=== PATIENT | female | born 1950 | race Caucasian/White ===

== ENCOUNTER 2018-12-07 06:39 | Day surgery (SDC) | payer OTHER ==
[~2018-12-07] VITALS: Ht 157.5 cm; Wt 69.5 kg
[~2018-12-07 06:39] MED LIST: Altoprev40 MG PO; BUPR150T2 PO; ESTR2 PO; GABA300; LOSA25 PO; NITR100CA; Naproxen375 MG PO; OMEPRAZOLE20 MG PO; QVAR REDIHALE10.6 G1 INH; TIZA4 PO; TRAZ50; TRAZ50 PO; [UNRECOGNIZED DRUG - OTHER] PO
--- NOTE | 2018-12-07 08:54 | NUR ---
12/07/18 0854 Yaquelin Ingram 8CC OF SALINE INJECTED INTO POLYP TO AID IN REMOVAL--PT TOLERATED WELL
== END 2018-12-07 09:32 | disposition home or self-care (01) ==
LOC: ORSCSDS 06:39
DX: Z12.11 Encounter for screening for malignant neoplasm of colon (principal); R13.10 Dysphagia, unspecified; Z86.010 Personal history of colon polyps; D12.3 Benign neoplasm of transverse colon; D12.2 Benign neoplasm of ascending colon; K63.89 Other specified diseases of intestine; K57.30 Diverticulosis of large intestine without perforation or abscess without bleeding; K64.8 Other hemorrhoids; K64.4 Residual hemorrhoidal skin tags; I10 Essential (primary) hypertension; Z79.899 Other long term (current) drug therapy
CPT/HCPCS: 88305; J0461; J2405; J2704; J7120

== ENCOUNTER → 2021-08-30 | Outpatient (CLI) | payer OTHER | END | disposition home or self-care (01) | LOC: LAB SHORT 18:50 → LAB FUT 08-30 12:45 | DX: K59.00 Constipation, unspecified (principal); R10.84 Generalized abdominal pain; R14.0 Abdominal distension (gaseous) | CPT/HCPCS: 87338 ==

== ENCOUNTER 2021-12-17 10:01 | Day surgery (SDC) | payer OTHER ==
[~2021-12-17] VITALS: Ht 154.9 cm; Wt 78.8 kg
== END 2021-12-17 13:38 | disposition home or self-care (01) ==
LOC: ORSCSDS 10:01
PROVIDERS: Internal Medicine Gastroenterology
PROC: 0DBA8ZX Excision of Jejunum, Via Natural or Artificial Opening Endoscopic, Diagnostic (ICD-10-PCS; principal; 2021-12-17 11:15)
PROC: 0DB78ZX Excision of Stomach, Pylorus, Via Natural or Artificial Opening Endoscopic, Diagnostic (ICD-10-PCS; principal; 2021-12-17 11:15)
PROC: 0DBL8ZX Excision of Transverse Colon, Via Natural or Artificial Opening Endoscopic, Diagnostic (ICD-10-PCS; principal; 2021-12-17 11:15)
PROC: 0D757ZZ Dilation of Esophagus, Via Natural or Artificial Opening (ICD-10-PCS; principal; 2021-12-17 11:15)
PROC: 0DBE8ZX Excision of Large Intestine, Via Natural or Artificial Opening Endoscopic, Diagnostic (ICD-10-PCS; principal; 2021-12-17 11:15)
PROC: 0DBC8ZX Excision of Ileocecal Valve, Via Natural or Artificial Opening Endoscopic, Diagnostic (ICD-10-PCS; principal; 2021-12-17 11:15)
DX: R13.10 Dysphagia, unspecified (principal); Z86.010 Personal history of colon polyps; D12.0 Benign neoplasm of cecum; D12.3 Benign neoplasm of transverse colon; K52.9 Noninfective gastroenteritis and colitis, unspecified; R10.9 Unspecified abdominal pain; K44.9 Diaphragmatic hernia without obstruction or gangrene; K64.8 Other hemorrhoids; K64.4 Residual hemorrhoidal skin tags; K57.30 Diverticulosis of large intestine without perforation or abscess without bleeding; R14.0 Abdominal distension (gaseous); I10 Essential (primary) hypertension; E78.5 Hyperlipidemia, unspecified; Z79.899 Other long term (current) drug therapy; Z79.82 Long term (current) use of aspirin; F41.8 Other specified anxiety disorders
CPT/HCPCS: 88305; 88342; J2704; J7120

== ENCOUNTER → 2022-11-17 | Outpatient (CLI) | payer OTHER | END | disposition home or self-care (01) | LOC: LAB SHORT 11:20 → LAB 11:20 | DX: N39.0 Urinary tract infection, site not specified (principal) | CPT/HCPCS: 87086 ==

== ENCOUNTER → 2023-01-20 | Outpatient (CLI) | payer OTHER ==
[2023-01-21 12:14] LABS: Candida species (DNA Probe) Negative (NEGATIVE); G. vaginalis (DNA Probe) Negative (NEGATIVE); T. vaginalis (DNA Probe) Negative (NEGATIVE)
== END ==
LOC: LAB SHORT 13:37 → LAB 13:37
PROVIDERS: Obstetrics & Gynecology
DX: N95.2 Postmenopausal atrophic vaginitis (principal)
CPT/HCPCS: 87480; 87510; 87660

== ENCOUNTER 2023-07-08 11:57 | Emergency (ER) | payer OTHER ==
[~2023-07-08] VITALS: Ht 172.7 cm; Wt 72.6 kg
[2023-07-08 13:12] LABS: BASOPHILS ABSOLUTE AUTO 0.07 K/mm3 (0.00-0.23); BASOPHILS PERCENT AUTO 1 % (0-2); EOSINOPHILS ABSOLUTE AUTO 0.21 K/mm3 (0.00-0.68); EOSINOPHILS PERCENT AUTO 2 % (0-6); Hematocrit 38.2 % (33.0-51.0); Hemoglobin 12.9 g/dL (11.5-16.0); IMMATURE GRAN ABSOLUTE AUTO 0.06 K/mm3 (0.00-0.10); IMMATURE GRAN PERCENT AUTO 1 % (0-1); LYMPHOCYTES ABSOLUTE AUTO 2.64 K/mm3 (0.84-5.20); LYMPHOCYTES PERCENT AUTO 25 % (21-46); MONOCYTES ABSOLUTE AUTO 0.96 K/mm3 (0.16-1.47); MONOCYTES PERCENT AUTO 9 % (4-13); Mean Corpuscular HGB Conc 33.8 g/dL (31.5-36.5); Mean Corpuscular Volume 86 fL (80-100); Mean Platelet Volume 8.5 fL (9.1-12.4); NEUTROPHILS ABSOLUTE AUTO 6.75 K/mm3 (1.96-9.15); NEUTROPHILS PERCENT AUTO 63 % (41-73); Platelet Count 449 K/mm3 (150-400); RDW Coefficient Variation 12.8 % (11.7-14.2); Red Blood Cell Count 4.45 M/mm3 (3.80-5.20); White Blood Cell Count 10.69 K/mm3 (4.00-11.30)
[2023-07-08 13:39] LABS: Albumin, Blood 3.9 g/dL (3.4-5.0); Bilirubin, Total 0.5 mg/dL (0.1-1.0); Bun/Creatinine Ratio 21.3 (12.0-20.0); Calcium, Blood 9.6 mg/dL (8.5-10.1); Creatinine, Blood 0.89 mg/dL (0.40-1.00); Globulin, Blood 4.1 g/dL (2.2-4.0); Potassium, Blood 4.2 mmol/L (3.5-5.5)
[2023-07-08 14:41] VITALS: BP 150/70
== END 2023-07-08 15:35 | disposition home or self-care (01) ==
LOC: ER 11:57
PROVIDERS: Student in an Organized Health Care Education/Training Program
DX: M54.32 Sciatica, left side (principal); I10 Essential (primary) hypertension; Z88.0 Allergy status to penicillin; Z79.1 Long term (current) use of non-steroidal anti-inflammatories (NSAID); Z79.51 Long term (current) use of inhaled steroids; Z79.818 Long term (current) use of other agents affecting estrogen receptors and estrogen levels; Z79.899 Other long term (current) drug therapy
CPT/HCPCS: 71046; 80053; 83880; 85025; 93005; 93010; 93971; 99284-25

== ENCOUNTER 2024-06-21 06:53 | Day surgery (SDC) | payer OTHER ==
[~2024-06-21] VITALS: Ht 154.9 cm; Wt 79.9 kg
[2024-06-21] VITALS (11 sets, daily range): BP systolic 101–148; BP diastolic 50–87
[~2024-06-21 06:53] MED LIST changes: +CLEAR LAX PO; +CLIMARA1 EACH TOP; +ESTRADIOL VAG; +GOLO; +LEVOTHYROXINE75 MC9 PO; +LOSARTAN-HCTZ1 EAC6 PO; +OMEP20ER PO; -OMEPRAZOLE20 MG PO; +VITAMIN D31000 UNI1 PO; +Vitamin B-12100 MCG; +Vitamin C100 M1 PO; +[UNRECOGNIZED DRUG - OTHER] PO; +collagen powder PO
[2024-06-21] MEDS ORDERED: Lactated Ringer's 1,000 ML IV SCH ×2 (07:15→10:25)
[2024-06-21] MEDS ORDERED: Chlorhexidine Mouth Care 15 ML UDC MT SCH (07:15)
[2024-06-21] MEDS ORDERED: Ropivacaine 0.5% HCl/Pf 123.125 MG,EPINEPHrine HCL 0.25 MG,Ketorolac Tromethamine 15 MG... INFIL SCH (07:15)
[2024-06-21] MEDS ORDERED: OxyCODONE HCL 10 MG TABCR PO SCH (07:15)
[2024-06-21] MEDS ORDERED: Acetaminophen 500 MG Tab PO SCH ×2 (07:15→16:00)
[2024-06-21] MEDS ORDERED: FentaNYL Citrate 50 MCG/ML 2 ML Injection ONE (07:19)
[2024-06-21] MEDS ORDERED: propofoL 20 ML IV ONE ×3 (07:19→10:08)
[2024-06-21] MEDS ORDERED: Tranexamic Acid 100 ML IV SCH (07:21)
[2024-06-21] MEDS ORDERED: CeFAZolin Sodium 2,000 MG in NS 100 ML IV SCH ×2 (07:25→17:00)
[2024-06-21] MEDS ORDERED: Estradiol 0.025 MG/24 Patch TOP SCH (09:25)
[2024-06-21] MEDS ORDERED: Estradiol Vag Cream 0.1 MG/G 42.5 GM Tube VAG SCH (09:25)
[2024-06-21] MEDS ORDERED: Ondansetron HCl 2 MG / ML 2ML Vial IV PRN ×2 (09:30→09:50)
[2024-06-21] MEDS ORDERED: Metoclopramide HCl 5MG / ML 2ML Vial IV PRN ×2 (09:30→09:45)
[2024-06-21] MEDS ORDERED: Magnesium Hydroxide Conc 10 ML UDC PO PRN (09:30)
[2024-06-21] MEDS ORDERED: OxyCODONE HCL 5 MG TAB PO PRN ×2 (09:35)
[2024-06-21] MEDS ORDERED: Promethazine HCl 25 MG Tab PO PRN (09:35)
[2024-06-21] MEDS ORDERED: Bisacodyl 10 MG Supp PR PRN (09:40)
[2024-06-21] MEDS ORDERED: HYDROmorphone HCl/Pf 1MG SYR IV PRN ×2 (09:40)
[2024-06-21] MEDS ORDERED: ePHEDrine Sulfate 50 MG/ML 1ML Injection IV PRN (09:40)
[2024-06-21] MEDS ORDERED: DiphenhydrAMINE HCL 25 MG Cap PO PRN (09:40)
[2024-06-21] MEDS ORDERED: Albuterol 2.5 MG/3 ML VIAL INH PRN (09:45)
[2024-06-21] MEDS ORDERED: Labetalol HCL 5 MG/ML 4ML Injection (Single Dose) IV PRN (09:45)
[2024-06-21] MEDS ORDERED: Atropine Sulfate 0.1 MG/ML 10ML SYR IV PRN (09:45)
[2024-06-21] MEDS ORDERED: Ketorolac Tromethamine 30mg Vial IV PRN ×2 (09:55)
[2024-06-21] MEDS ORDERED: Ketorolac Tromethamine 30mg Vial ONE (10:56)
[2024-06-21] MEDS ORDERED: HYDROmorphone HCl/Pf 1MG SYR ONE (10:56)
[2024-06-21] MEDS ORDERED: Ketorolac Tromethamine 15mg Vial IV SCH (12:00)
--- NOTE | 2024-06-21 17:58 | NUR ---
DISCHARGE SUMMARY POD0 R TKA, A/OX4, VSS, TOLERATING PO, SHE HAD INTERMITTENT NAUSEA BUT THIS HAS BEEN RESOLVED, WORKED WITH THERAPY AND DID WELL, UP AN AMBULATING [facility] SBA, VOIDING INDEPENDENTLY. DISCUSSED DISCHARGE INSTRUCTIONS WITH HER, NO QUESTIONS AT THIS TIME, REMOVED IV DURING DC INSTRUCTIONS. ESCORTED OUT VIA WC TO PRIVATE AUTO TO GO HOME.
[2024-06-21] MEDS ORDERED: Cholecalciferol 1000 Unit Tablet (=25MCG) PO SCH (21:00)
[2024-06-21] MEDS ORDERED: Docusate Sodium 100 MG Cap PO SCH (21:00)
[2024-06-21] MEDS ORDERED: Ascorbic Acid 500 MG Tab PO SCH (21:00)
[2024-06-22] MEDS ORDERED: Omeprazole 20 MG CapCR PO SCH (06:00)
[2024-06-22] MEDS ORDERED: Levothyroxine Sodium 0.075 MG Tab PO SCH (06:00)
[2024-06-22] MEDS ORDERED: Losartan Potassium 50 MG Tab PO SCH (09:00)
[2024-06-22] MEDS ORDERED: HydroCHLOROthiazide 25 mg Tab PO SCH (09:00)
[2024-06-22] MEDS ORDERED: Aspirin 81 MG Chew PO SCH (09:00)
== END 2024-06-27 14:25 | disposition home or self-care (01) ==
LOC: ORSCMMR 06:53 → ORD 08:15 → ORSCMMR 08:15 → ORD 11:00 → ORSCMMR 11:38 → SURS 11:38 → ORSCMMR 17:21 → SURS 17:21 → ORSCMMR 06-27 14:25
PROVIDERS: Orthopaedic Surgery
PROC: 0SRC0JA Replacement of Right Knee Joint with Synthetic Substitute, Uncemented, Open Approach (ICD-10-PCS; principal; 2024-06-21 08:15)
DX: M17.11 Unilateral primary osteoarthritis, right knee (principal); I10 Essential (primary) hypertension; E03.9 Hypothyroidism, unspecified; Z79.899 Other long term (current) drug therapy; E66.9 Obesity, unspecified; Z68.33 Body mass index [BMI] 33.0-33.9, adult
CPT/HCPCS: 73560-RT; 97116; 97161; 97530; A9270; C1713; C1776; J0171; J0690; J0735; J1171; J1885; J2405; J2704; J2795; J3010; J7120

== ENCOUNTER 2024-11-30 21:41 | Inpatient (IN) | payer OTHER ==
[~2024-11-30] VITALS: Ht 154.9 cm; Wt 75.2 kg
[2024-11-30 22:10] LABS: BASOPHILS ABSOLUTE AUTO 0.05 K/mm3 (0.00-0.23); BASOPHILS PERCENT AUTO 0 % (0-2); EOSINOPHILS ABSOLUTE AUTO 0.06 K/mm3 (0.00-0.68); EOSINOPHILS PERCENT AUTO 0 % (0-6); Hematocrit 40.1 % (33.0-51.0); Hemoglobin 13.1 g/dL (11.5-16.0); IMMATURE GRAN ABSOLUTE AUTO 0.06 K/mm3 (0.00-0.10); IMMATURE GRAN PERCENT AUTO 0 % (0-1); LYMPHOCYTES ABSOLUTE AUTO 2.07 K/mm3 (0.84-5.20); LYMPHOCYTES PERCENT AUTO 15 % (21-46); MONOCYTES ABSOLUTE AUTO 1.09 K/mm3 (0.16-1.47); MONOCYTES PERCENT AUTO 8 % (4-13); Mean Corpuscular HGB Conc 32.7 g/dL (31.5-36.5); Mean Corpuscular Volume 88 fL (80-100); NEUTROPHILS ABSOLUTE AUTO 10.93 K/mm3 (1.96-9.15); NEUTROPHILS PERCENT AUTO 77 % (41-73); NRBC ABSOLUTE 0.00 K/mm3 (0.00-0.02); NRBC Auto 0.0 /100 WBC (0.0-0.2); Platelet Count 382 K/mm3 (150-400); RDW Coefficient Variation 15.2 % (11.7-14.2); RDW Standard Deviation 50.0 fL (35.1-46.3)
[2024-11-30 22:29] LABS: Alanine Aminotransfer (ALT/SGP 20.0 U/L (12-78); Albumin, Blood 3.5 g/dL (3.4-5.0); Albumin/Globulin Ratio 1.0 (0.8-1.8); Anion Gap 9.0 mmol/L (3-11); Aspartate Aminotrans (AST/SGOT 14.0 U/L (12-37); Bilirubin, Total 0.6 mg/dL (0.1-1.0); Blood Urea Nitrogen 23.0 mg/dL (8-24); CO2, Blood 25.0 mmol/L (21-32); Calcium, Blood 8.5 mg/dL (8.5-10.1); Chloride, Blood 110.0 mmol/L (98-108); Creatinine, Blood 0.91 mg/dL (0.40-1.00); Globulin, Blood 3.6 g/dL (2.2-4.0); Glucose, Blood 140.0 mg/dL (70-99); Potassium, Blood 3.9 mmol/L (3.5-5.5); Sodium, Blood 140.0 mmol/L (136-145); Total Protein, Blood 7.1 g/dL (6.4-8.2)
[2024-11-30] MEDS ORDERED: Ondansetron HCl 2 MG / ML 2ML Vial IV ONE (22:40)
[2024-11-30] MEDS ORDERED: Morphine Sulfate 4 MG/1 ML Injection IV ONE (23:30)
[2024-12-01 00:03] LABS: Source, Urine Clean Catch
[2024-12-01 00:13] LABS: Bilirubin, Urine Neg (Neg); Glucose Qualitative, Urine Neg (Neg); Ketones, Urine Neg (Neg); Leukocyte Esterase, Urine Neg (Neg); Protein, Urine 1+ (Neg); Specific Gravity, Urine 1.025 (1.003-1.022); Urobilinogen, Urine NORM (Normal)
[2024-12-01 00:41] LABS: Color, Urine Yellow (P-Yellow); Red Blood Cells, Urine 0-2 /hpf (0-2); White Blood Cells, Urine 0-2 /hpf (0-5)
[2024-12-01] MEDS ORDERED: Metoclopramide HCl 5MG / ML 2ML Vial IV ONE (01:50)
[2024-12-01] MEDS ORDERED: Morphine Sulfate 4 MG/1 ML Injection IV ONE (01:50)
[2024-12-01] MEDS ORDERED: Ondansetron HCl 2 MG / ML 2ML Vial IV PRN (02:15)
[2024-12-01] MEDS ORDERED: FentaNYL Citrate 50 MCG/ML 2 ML Injection IV PRN (02:15)
[2024-12-01] MEDS ORDERED: FLU VACC TS2025(65UP)/MF59C/PF 45 MCG/0.5 ML SYRINGE IM SCH (02:15)
[2024-12-01] MEDS ORDERED: NS 1,000 ML IV SCH (02:15)
--- NOTE | 2024-12-01 04:33 | NUR ---
ARRIVAL TO UNIT PT ARRIVED TO UNIT VIA WHEELCHAIR. PT ABLE TO IND AMB TO BED. A&O x4, FOLLOWS DIRECTIONS & ANSWERS QUESTIONS APPROPRIATELY. VSS. NPO STATUS. PT REPORTS ABD PAIN TOLERABLE 06/16. DENIES PASSING FLATUS SINCE ARRIVAL TO HOSPITAL, HYPOACTIVE BOWEL TONES. PT REPORTS NAUSEA INCREASE c MOVEMENT, DENIES EMESIS. PT REPORTS VOID IN ED PRIOR TO TRANSPORT. PERSONAL BELONGINGS IN PT BAG, CELL PHONE AT BEDSIDE. ORIENTED TO UNIT, CALL LIGHT IN REACH
[2024-12-01 04:52] VITALS: BP 141/70
[2024-12-01 04:52] LABS: BASOPHILS ABSOLUTE AUTO 0.04 K/mm3 (0.00-0.23); BASOPHILS PERCENT AUTO 0 % (0-2); EOSINOPHILS ABSOLUTE AUTO 0.01 K/mm3 (0.00-0.68); EOSINOPHILS PERCENT AUTO 0 % (0-6); Hematocrit 41.9 % (33.0-51.0); Hemoglobin 13.9 g/dL (11.5-16.0); IMMATURE GRAN ABSOLUTE AUTO 0.03 K/mm3 (0.00-0.10); IMMATURE GRAN PERCENT AUTO 0 % (0-1); LYMPHOCYTES ABSOLUTE AUTO 1.58 K/mm3 (0.84-5.20); LYMPHOCYTES PERCENT AUTO 12 % (21-46); MONOCYTES ABSOLUTE AUTO 1.27 K/mm3 (0.16-1.47); MONOCYTES PERCENT AUTO 9 % (4-13); Mean Corpuscular HGB Conc 33.2 g/dL (31.5-36.5); Mean Corpuscular Volume 88 fL (80-100); NEUTROPHILS ABSOLUTE AUTO 10.56 K/mm3 (1.96-9.15); NEUTROPHILS PERCENT AUTO 78 % (41-73); NRBC ABSOLUTE 0.00 K/mm3 (0.00-0.02); NRBC Auto 0.0 /100 WBC (0.0-0.2); Platelet Count 373 K/mm3 (150-400); RDW Coefficient Variation 15.2 % (11.7-14.2); RDW Standard Deviation 49.1 fL (35.1-46.3)
[2024-12-01 05:00] VITALS: BP 172/74
[2024-12-01 05:13] LABS: Alanine Aminotransfer (ALT/SGP 21.0 U/L (12-78); Albumin, Blood 3.5 g/dL (3.4-5.0); Albumin/Globulin Ratio 0.9 (0.8-1.8); Anion Gap 7.0 mmol/L (3-11); Aspartate Aminotrans (AST/SGOT 13.0 U/L (12-37); Bilirubin, Total 1.1 mg/dL (0.1-1.0); Blood Urea Nitrogen 22.0 mg/dL (8-24); CO2, Blood 28.0 mmol/L (21-32); Calcium, Blood 8.5 mg/dL (8.5-10.1); Chloride, Blood 108.0 mmol/L (98-108); Creatinine, Blood 0.87 mg/dL (0.40-1.00); Globulin, Blood 3.7 g/dL (2.2-4.0); Glucose, Blood 130.0 mg/dL (70-99); Potassium, Blood 3.8 mmol/L (3.5-5.5); Sodium, Blood 139.0 mmol/L (136-145); Total Protein, Blood 7.2 g/dL (6.4-8.2)
[2024-12-01 05:24] LABS: Magnesium, Blood 2.0 mg/dL (1.6-2.4); Phosphorus, Blood 3.5 mg/dL (2.5-4.9); Thyroid Stimulating Hormone 4.83 uIU/mL (0.360-4.800)
[2024-12-01 07:16] VITALS: BP 137/54
[2024-12-01] MEDS ORDERED: MIRALAX17 GM PO (13:59)
[2024-12-01] MEDS ORDERED: PRAVASTATIN SOD40 MG PO (14:01)
[2024-12-01] MEDS ORDERED: Benzocaine Oral Spray 0.5ML UD MT PRN (15:45)
[2024-12-01 15:48] VITALS: BP 149/62
[2024-12-01] MEDS ORDERED: Pantoprazole Sodium 40 MG Injection IV SCH (16:30)
--- NOTE | 2024-12-01 16:43 | NUR ---
SHIFT SUMMARY PT HAS REMAINED AWAKE, ALERT, AND ORIENTED. PT WITH EPISODE OF NAUSEA AND EMESIS THIS MORNING. PT WITH NG TUBE PLACED THIS AFTERNOON TO LIS. PT WITH NO OUTPUT AT THIS TIME. PT REMAINS NPO. PT COMPLAINS OF DISCOMFORT TO THROAT FROM NGT. PT DENIES ABD DISCOMFORT AT THIS TIME. IV SALINE LOCKED AT THIS TIME. PT UP TO TOILET TO VOID WITH SBA. VITAL SIGNS STABLE, PT ON ROOM AIR. PT SPOUSE AT BEDSIDE. WILL CONTINUE TO MONITOR AND REPORT OFF TO ONCOMING RN.
--- NOTE | 2024-12-01 18:50 | NUR ---
ASSUMPTION OF CARE RECEIVED BEDSIDE REPORT FROM BLAKE MARK. PT RESTING IN BED c AT BEDSIDE. VSS. NPO c NG TUBE TO LIS c MIN CLEAR OUTPUT. DENIES PASSSING FLATUS/BM TODAY. PT REPORTS PAIN TO BACK OF THROAT R/T NG TUBE, RELIEF c HURRIACANE SPRAY PER EMAR. PT STATES NO NEEDS AT THIS TIME. CALL LIGHT IN REACH.
[2024-12-01 19:08] VITALS: BP 142/56
[2024-12-01 23:53] VITALS: BP 176/83
--- NOTE | 2024-12-02 03:25 | NUR ---
TRANSFER TO SURGICAL FLOOR PT A&O x4, ANXIOUS. VSS, TELE IN USE - NSR. NPO c NG TUBE TO LIS. 100mL CLEAR OUTPUT THIS SHIFT. DENIES NAUSEA, REPORTS THROAT PAIN R/T NG TUBE & MIN ABD PAIN. RELIEF c HURRICANE SPRAY PER EMAR. DENIES PASSING FLATUS. VOIDING. SBA R/T LINES/CORDS. ALL PERSONAL BELONGINGS c PT. TRANSFER TO FLOOR VIA WHEELCHAIR.
[2024-12-02 03:26] VITALS: BP 130/65
[2024-12-02 05:34] LABS: BASOPHILS ABSOLUTE AUTO 0.03 K/mm3 (0.00-0.23); BASOPHILS PERCENT AUTO 0 % (0-2); EOSINOPHILS ABSOLUTE AUTO 0.10 K/mm3 (0.00-0.68); EOSINOPHILS PERCENT AUTO 1 % (0-6); Hematocrit 39.0 % (33.0-51.0); Hemoglobin 12.7 g/dL (11.5-16.0); IMMATURE GRAN ABSOLUTE AUTO 0.02 K/mm3 (0.00-0.10); IMMATURE GRAN PERCENT AUTO 0 % (0-1); LYMPHOCYTES ABSOLUTE AUTO 1.84 K/mm3 (0.84-5.20); LYMPHOCYTES PERCENT AUTO 24 % (21-46); MONOCYTES ABSOLUTE AUTO 0.89 K/mm3 (0.16-1.47); MONOCYTES PERCENT AUTO 11 % (4-13); Mean Corpuscular HGB Conc 32.6 g/dL (31.5-36.5); Mean Corpuscular Volume 89 fL (80-100); NEUTROPHILS ABSOLUTE AUTO 4.95 K/mm3 (1.96-9.15); NEUTROPHILS PERCENT AUTO 63 % (41-73); NRBC ABSOLUTE 0.00 K/mm3 (0.00-0.02); NRBC Auto 0.0 /100 WBC (0.0-0.2); Platelet Count 356 K/mm3 (150-400); RDW Coefficient Variation 15.4 % (11.7-14.2); RDW Standard Deviation 51.1 fL (35.1-46.3)
--- NOTE | 2024-12-02 05:58 | NUR ---
SHIFT SUMMARY PT TRANSFER TO 214 FROM ICU 9 APPROX 0325. AOX4. VSS. DENIES N/V OR ABD PAIN, STATES NAUSEA & ABD CRAMPING HAS MOSTLY RESOLVED SINCE NGT WAS PLACED. REPORTS MILD DISCOMFORT/PAIN TO BACK OF THROAT, RELIEVED VIA HURRICAINE SPRAY PER EMAR. NGT TO LIS, 100ML LIGHT BROWN & CLEAR MIXED DRAINAGE IN CANISTER. PT NPO. DENIES PASSING FLATUS. HYPOACTIVE BT. CALL LIGHT IN REACH & PT ABLE TO MAKE NEEDS KNOWN.
[2024-12-02 06:23] LABS: Alanine Aminotransfer (ALT/SGP 19.0 U/L (12-78); Albumin, Blood 3.1 g/dL (3.4-5.0); Albumin/Globulin Ratio 1.0 (0.8-1.8); Anion Gap 9.0 mmol/L (3-11); Aspartate Aminotrans (AST/SGOT 16.0 U/L (12-37); Bilirubin, Total 1.5 mg/dL (0.1-1.0); Blood Urea Nitrogen 17.0 mg/dL (8-24); CO2, Blood 25.0 mmol/L (21-32); Calcium, Blood 8.4 mg/dL (8.5-10.1); Chloride, Blood 109.0 mmol/L (98-108); Creatinine, Blood 0.8 mg/dL (0.40-1.00); Globulin, Blood 3.2 g/dL (2.2-4.0); Glucose, Blood 87.0 mg/dL (70-99); Potassium, Blood 3.6 mmol/L (3.5-5.5); Sodium, Blood 139.0 mmol/L (136-145); Total Protein, Blood 6.3 g/dL (6.4-8.2)
[2024-12-02 07:22] VITALS: BP 134/62
[2024-12-02] MEDS ORDERED: Enoxaparin 40 MG/0.4 ML SYR SC SCH (09:00)
[2024-12-02 12:00] VITALS: BP 153/56
[2024-12-02 14:57] VITALS: BP 147/62
--- NOTE | 2024-12-02 17:21 | NUR ---
SHIFT NOTE: PT A/OX4 ABLE TO MAKE HER NEEDS KNOWN. NG TUBE WAS TO LIS UNTIL THE START OF FOLLOWTHROUGH. PT MEDICATED FOR NAUSEA BEFORE START. PT NOW PASSING BOWEL AND REPORTS ABD CRAMPING. PT PASSING LARGE AMOUNTS OF BROWN COLORED STOOL. PT MEDICATED FOR ANXIETY PER EMAR. AT BEDSIDE AND UPDATED ON PLAN OF CARE. CARE CONTINUES.
[2024-12-02 20:18] VITALS: BP 144/53
[2024-12-03 00:29] VITALS: BP 125/58
[2024-12-03 05:34] VITALS: BP 136/60
--- NOTE | 2024-12-03 06:11 | NUR ---
SHIFT SUMMARY PT HAS RESTED T/O THE NIGHT. PT DENIES ABD PAIN, NG TO LIS WITH CLEAR BROWN DISCHARGE. NO MORE BM'S OVERNIGHT. NEW IV ESTABLISHED TO LEFT FA, IVF FLUIDS INFUSING PER ORDERS. VITALS STABLE. PT INDEPENDENT TO BSC. PLAN OF CARE REMAINS UNCHANGED. BED IN LOWEST POSITION, CALL LIGHT WITHIN REACH.
[2024-12-03 06:16] LABS: BASOPHILS ABSOLUTE AUTO 0.03 K/mm3 (0.00-0.23); BASOPHILS PERCENT AUTO 0 % (0-2); EOSINOPHILS ABSOLUTE AUTO 0.01 K/mm3 (0.00-0.68); EOSINOPHILS PERCENT AUTO 0 % (0-6); Hematocrit 37.6 % (33.0-51.0); Hemoglobin 12.0 g/dL (11.5-16.0); IMMATURE GRAN ABSOLUTE AUTO 0.02 K/mm3 (0.00-0.10); IMMATURE GRAN PERCENT AUTO 0 % (0-1); LYMPHOCYTES ABSOLUTE AUTO 1.60 K/mm3 (0.84-5.20); LYMPHOCYTES PERCENT AUTO 19 % (21-46); MONOCYTES ABSOLUTE AUTO 0.96 K/mm3 (0.16-1.47); MONOCYTES PERCENT AUTO 12 % (4-13); Mean Corpuscular HGB Conc 31.9 g/dL (31.5-36.5); Mean Corpuscular Volume 89 fL (80-100); NEUTROPHILS ABSOLUTE AUTO 5.74 K/mm3 (1.96-9.15); NEUTROPHILS PERCENT AUTO 69 % (41-73); NRBC ABSOLUTE 0.00 K/mm3 (0.00-0.02); NRBC Auto 0.0 /100 WBC (0.0-0.2); Platelet Count 358 K/mm3 (150-400); RDW Coefficient Variation 15.4 % (11.7-14.2); RDW Standard Deviation 51.0 fL (35.1-46.3)
[2024-12-03 07:10] VITALS: BP 144/58
[2024-12-03] MEDS ORDERED: Pantoprazole Sodium 40 MG Injection IV SCH (07:10)
[2024-12-03 07:19] LABS: Alanine Aminotransfer (ALT/SGP 23.0 U/L (12-78); Albumin, Blood 3.0 g/dL (3.4-5.0); Albumin/Globulin Ratio 0.9 (0.8-1.8); Anion Gap 12.0 mmol/L (3-11); Aspartate Aminotrans (AST/SGOT 17.0 U/L (12-37); Bilirubin, Total 1.0 mg/dL (0.1-1.0); Blood Urea Nitrogen 23.0 mg/dL (8-24); CO2, Blood 23.0 mmol/L (21-32); Calcium, Blood 9.0 mg/dL (8.5-10.1); Chloride, Blood 117.0 mmol/L (98-108); Creatinine, Blood 0.9 mg/dL (0.40-1.00); Globulin, Blood 3.4 g/dL (2.2-4.0); Glucose, Blood 102.0 mg/dL (70-99); Magnesium, Blood 2.1 mg/dL (1.6-2.4); Phosphorus, Blood 4.0 mg/dL (2.5-4.9); Potassium, Blood 3.6 mmol/L (3.5-5.5); Sodium, Blood 148.0 mmol/L (136-145); Total Protein, Blood 6.4 g/dL (6.4-8.2)
--- NOTE | 2024-12-03 08:58 | NUR ---
NGT DC'D PER MD ORDER. PT GIVEN WATER AND ENCOURAGED TO SIP/TAKE PO VERY SLOWLY. PT AGREES TO THIS.
[2024-12-03] MEDS ORDERED: NS 1,000 ML IV SCH (10:00)
[2024-12-03] MEDS ORDERED: Polyethylene Glycol 3350 17 gm PO ONE (12:00)
--- NOTE | 2024-12-03 12:25 | NUR ---
PT MEDICATED FOR 09/15 PAIN LABIAL. WILL PLAN TO ATTEMPT TO FIX LEAK OR PACK WOUND AFTER LUNCH/ WHEN PT HAS PAIN RELIEF. LEAK TO WOUND VAC CONTINUES. WILL CONTINUE TO MONITOR.
[2024-12-03 14:53] VITALS: BP 128/55
--- NOTE | 2024-12-03 14:58 | NUR ---
PT RESTING COMFORTABLY. DENIES NAUSEA. TOLERATED LUNCH MEAL TRAY. WILL CONTINUE TO MONITOR.
[2024-12-03] MEDS ORDERED: Ondansetron 4 MG SoluTab MM PRN (17:00)
[2024-12-03] MEDS ORDERED: Ondansetron 4 MG SoluTab MM ONE (17:00)
[2024-12-03 19:30] VITALS: BP 133/57
[2024-12-03] MEDS ORDERED: Cholecalciferol 1000 Unit Tablet (=25MCG) PO SCH (21:00)
[2024-12-03 23:25] VITALS: BP 137/65
[2024-12-04 04:01] VITALS: BP 129/71
[2024-12-04 04:37] LABS: BASOPHILS ABSOLUTE AUTO 0.03 K/mm3 (0.00-0.23); BASOPHILS PERCENT AUTO 0 % (0-2); EOSINOPHILS ABSOLUTE AUTO 0.10 K/mm3 (0.00-0.68); EOSINOPHILS PERCENT AUTO 1 % (0-6); Hematocrit 36.7 % (33.0-51.0); Hemoglobin 11.9 g/dL (11.5-16.0); IMMATURE GRAN ABSOLUTE AUTO 0.03 K/mm3 (0.00-0.10); IMMATURE GRAN PERCENT AUTO 0 % (0-1); LYMPHOCYTES ABSOLUTE AUTO 2.28 K/mm3 (0.84-5.20); LYMPHOCYTES PERCENT AUTO 26 % (21-46); MONOCYTES ABSOLUTE AUTO 1.04 K/mm3 (0.16-1.47); MONOCYTES PERCENT AUTO 12 % (4-13); Mean Corpuscular HGB Conc 32.4 g/dL (31.5-36.5); Mean Corpuscular Volume 90 fL (80-100); NEUTROPHILS ABSOLUTE AUTO 5.45 K/mm3 (1.96-9.15); NEUTROPHILS PERCENT AUTO 61 % (41-73); NRBC ABSOLUTE 0.00 K/mm3 (0.00-0.02); NRBC Auto 0.0 /100 WBC (0.0-0.2); Platelet Count 312 K/mm3 (150-400); RDW Coefficient Variation 15.2 % (11.7-14.2); RDW Standard Deviation 50.1 fL (35.1-46.3)
[2024-12-04 05:37] LABS: Alanine Aminotransfer (ALT/SGP 23.0 U/L (12-78); Albumin, Blood 3.0 g/dL (3.4-5.0); Albumin/Globulin Ratio 0.8 (0.8-1.8); Anion Gap 7.0 mmol/L (3-11); Aspartate Aminotrans (AST/SGOT 25.0 U/L (12-37); Bilirubin, Total 1.3 mg/dL (0.1-1.0); Blood Urea Nitrogen 16.0 mg/dL (8-24); CO2, Blood 25.0 mmol/L (21-32); Calcium, Blood 8.6 mg/dL (8.5-10.1); Chloride, Blood 109.0 mmol/L (98-108); Creatinine, Blood 0.8 mg/dL (0.40-1.00); Globulin, Blood 3.6 g/dL (2.2-4.0); Glucose, Blood 101.0 mg/dL (70-99); Potassium, Blood 3.3 mmol/L (3.5-5.5); Total Protein, Blood 6.6 g/dL (6.4-8.2)
[2024-12-04 05:41] LABS: Sodium, Blood 138.0 mmol/L (136-145)
[2024-12-04 07:10] VITALS: BP 131/64
--- NOTE | 2024-12-04 07:55 | NUR ---
SHIFT SUMMARY AOX4. VSS. TELE NSR HR 85. AT HS PT REPORTS "JUST NOT FEELING WELL," STATES THE DINNER MEAT WAS TOO SPICY & HER ABD IS GRUMBLING & UNHAPPY. DENIES N/V OR ABD PAIN. HYPERACTIVE BT. DENIES PASSING FLATUS. ENCOURAGED AMBULATION & PT WENT ON [facility] THROUGH HOSPITAL W/THIS RN THIS AM. VOIDING. NO BM THIS SHIFT. CALL LIGHT IN REACH & PT ABLE TO MAKE NEEDS KNOWN.
[2024-12-04] MEDS ORDERED: Polyethylene Glycol 3350 17 gm PO SCH (09:00)
[2024-12-04 11:51] VITALS: BP 149/70
[2024-12-04] MEDS ORDERED: HYDCHL25 PO (13:48)
[2024-12-04] MEDS ORDERED: LOSA50 PO (13:49)
[2024-12-04] MEDS ORDERED: ONDA4ODT PO (13:50)
== END 2024-12-04 14:25 | disposition home or self-care (01) | DRG 390 ==
LOC: ER 21:41 → ERHOLD 12-01 02:10 → SURS 12-01 02:10 → ICUE 12-01 02:10 → SURS 12-02 03:20
PROVIDERS: Registered Nurse; Student in an Organized Health Care Education/Training Program; ADMIT Internal Medicine
PROC: 0D9670Z Drainage of Stomach with Drainage Device, Via Natural or Artificial Opening (ICD-10-PCS; principal; 2024-12-01)
DX: K56.609 Unspecified intestinal obstruction, unspecified as to partial versus complete obstruction (principal); I10 Essential (primary) hypertension; E03.9 Hypothyroidism, unspecified; K21.9 Gastro-esophageal reflux disease without esophagitis; E86.0 Dehydration; K59.09 Other constipation; R91.1 Solitary pulmonary nodule; F41.9 Anxiety disorder, unspecified; Z79.890 Hormone replacement therapy; Z79.899 Other long term (current) drug therapy; Z90.49 Acquired absence of other specified parts of digestive tract; Z90.710 Acquired absence of both cervix and uterus; Z98.890 Other specified postprocedural states; Z88.0 Allergy status to penicillin
CPT/HCPCS: 36415; 71045; 74177; 74250; 80053; 81001; 83690; 83735; 83880; 84100; 84439; 84443; 85025; 96374; 96375; 96376; 99285-25; A9270; J1650; J2270; J2405; J2470; J2765; J3010; J7030; J7120; Q9967

== ENCOUNTER → 2024-12-26 | Outpatient (CLI) | payer OTHER ==
[~2024-12-26] MED LIST changes: +HYDCHL25 PO; +LOSA50 PO; +MIRALAX17 GM PO; +ONDA4ODT PO; +PRAVASTATIN SOD40 MG PO
[2024-12-29 13:15] LABS: CALPROTECTIN,FECAL 90 ug/g (<=49)
== END ==
LOC: LAB 10:45 → LAB SHORT 10:45
PROVIDERS: Physician Assistant Medical
DX: Z87.19 Personal history of other diseases of the digestive system (principal); K59.00 Constipation, unspecified
CPT/HCPCS: 83993